=== PATIENT | female | born 1950 ===

== ENCOUNTER → 2018-10-06 20:34 | Outpatient (REF) | payer MEDICARE, OTHER, SELFPAY ==
[2018-10-06 21:16] LABS: Add Manual Diff / Slide Review NO; Alanine Aminotransferase 28 IU/L (9-52); Albumin 4.5 g/dL (3.5-5.0); Alkaline Phosphatase 96 U/L (38-126); Aspartate Aminotransferase 29 IU/L (14-36); BUN Creatinine Ratio 35.7 (6-22); Basophils Absolute Auto 100 /uL (0-100); Basophils Percent Auto 1.1 % (0-2); Bilirubin Total 0.4 mg/dL (0.2-1.3); Blood Urea Nitrogen 25 mg/dL (7-17); Calcium 10.3 mg/dL (8.4-10.2); Carbon Dioxide 30 mmol/L (22-32); Chloride 100 mmol/L (98-107); Eosinophils Absolute Auto 100 /uL (0-450); Eosinophils Percent Auto 1.2 % (2-4); Estimated Glomerular Filt Rate > 60.0 mL/min (>60); Globulin 2.3 g/dL (1.7-4.1); Glucose 100 mg/dL (80-110); HEMOLYSIS < 15 (0-50); Hemoglobin 13.6 g/dL (12.0-16.0); Lymphocytes Absolute Auto 1800 /uL (1100-4500); Lymphocytes Percent Auto 29.5 % (25-40); Mean Corpuscular HGB Conc 33.2 % (30-36); Mean Corpuscular Hemoglobin 31.5 PG (26-34); Monocytes Absolute Auto 400 /uL (0-900); Monocytes Percent Auto 6.8 % (3-14); Neutrophils Absolute Auto 3800 /uL (1500-7000); Neutrophils Percent Auto 61.4 % (50-75); Platelet Count 269 X10^3/uL (150-400); Potassium 5.3 mmol/L (3.4-5.1); Red Blood Cell Count 4.32 X10^6/uL (4.0-5.2); Red Cell Distribution Width 13.7 % (11.6-14.8); Sodium 140 mmol/L (137-145); Total Protein 6.8 g/dL (6.3-8.2); White Blood Cell Count 6.1 X10^3/uL (4.5-11.0)
[2018-10-06 21:44] LABS: Erythrocyte Sedimentation Rate 5 MM/HR (0-20)
[2018-10-06 22:12] LABS: Lactate Dehydrogenase 434 U/L (313-618)
== END ==
LOC: LAB 20:34
PROVIDERS: Visit Provider Family Medicine
DX: R59.1 Generalized enlarged lymph nodes (principal); R53.83 Other fatigue
CPT/HCPCS: 36415; 80053; 83615; 85025; 85651